=== PATIENT | female | born 1945 | race Caucasian/White ===

== ENCOUNTER → 2017-01-16 11:04 | Outpatient (CLI) | payer MEDICARE, BC ==
[~2017-01-16] VITALS: Ht 160 cm; Wt 88.6 kg
--- NOTE | ~2017-01-16 | HEMODYNAMI ---
PATIENT:GORDY MCRAE MEDICAL RECORD: [id number] : 49 LOCATION:[facility] ADMISSION DATE: 01/16/17 Generatedon:01/16/201713:41 Patient name: GORDY MCRAE Patient #: [id number] SSN: DO B: 1945 Date of study: 01/16/2017 Page: Of Hemodynamic Procedure Report Patient Data Patient Demographics Procedure consent was obtained First Name: GORDY Gender: Female Last Name: THOR : 1945 [facility] Initial: S Age: 71 year(s) Patient #: [id number] Race: Unknown Additional ID: [id number] Contact details Address: [address] [place] [address] [facility] State: [place] City: [place] Zip code: [address] Past Medical History Allergies: No known allergies Admission Admission Data Admission Date: 01/16/2017 Admission Time: 11:04 Lab Results Lab Result Date: 01/16/2017 Lab Result Time: 11:40 Biochemistry Name Units Result Min Max BUN mg/dl 14 --(--*-)-- 7 18 Creatinine mg/dl 0.9 --(-*--)-- 0.6 1.3 CBC Name Units Result Min Max Hematocrit % 29.6 *-(----)-- 42 54 Hemoglobin g/dl 8.4 *-(----)-- 13.5 17.5 Procedure Procedure Types Cath Procedure Diagnostic Procedure [facility] w/Coronaries Miscellaneous Procedures Moderate Sedation up to 30 minutes Procedure Description Procedure Date Procedure Date: 01/16/2017 Procedure Start Time: 13:19 Procedure End Time: 13:40 Procedure Staff Name Function Harris Qureshi RT Scrub Virginie Butts RN Nurse Lonny Leary MD Performing Physician Jose G Chavez RT Monitor Rasheeda Bowman RT Scrub Maritza Lockwood RT Monitor Procedure Data Cath Procedure Fluoroscopy Diagnostic fluoroscopy Total fluoroscopy Time: 2.2 time: 2.2 min min Diagnostic fluoroscopy Total fluoroscopy dose: 412 dose: 412 mGy mGy Contrast Material Contrast Material Type Amount (ml) Isovue 300 68 Entry Location Entry Primary Successful Side Size Upsize Upsize Entry Closure Succes sful Closure Location (Fr) 1 (Fr) 2 (Fr) Remarks Device Remarks Femoral Right 5 Fr Exoseal artery Estimated blood loss: 5 ml Diagnostic catheters Device Type Used For End Catheter Placement Cordis 5Fr JL 4.0 Left Coronary Catheter (MP) Angiography Cordis 5Fr 3DRC Catheter Right Coronary (MP) Angiography Cordis 5Fr Pigtail LV Angiography Catheter (MP) Procedure Complications No complications Procedure Medications Medication Administration Route Dosage Oxygen NC 2 l/min Lidocaine 2% added to field 20 Heparin Flush Bag added to field 2 bags (1000units/500ml NS) 0.9% NaCl I.V. 100 ml/hr Versed I.V. 1 mg Fentanyl I.V. 50 mcg Versed I.V. 1 mg Fentanyl I.V. 50 mcg Fentanyl I.V. 25 mcg Hemodynamics Rest HGB: 8.4 (g/dl) Heart Rate: 62 (bpm) Pressure Samples Time Site Value (mmHg) Purpose Heart Use Rate(bpm) 13:34 LV 143/6,23 EDP 71 13:35 LV 122/12,21 Pullback 62 13:35 AO 147/72(105) Pullback 62 Gradients Valve Time Site 1 Site 2 Mean SEP/DFP Peak To Heart Use (mmHg) (sec/min) Peak Rate (mmHg) (bpm) Aortic 13:35 LV AO 0 5 0 62 122/12,21 147/72(105) Calculations Valve P-P Mean Valve Index Valve Source Name Gradient Area Flow (cm2) Aortic 0 0 0 0 Snapshots Pre Cath Intra NCS Post Cath Vital Signs Time Heart Resp SPO2 etCO2 MO1rqul NIBP (mmHg) Rhythm Pain Sedation Rate (ipm) (%) (mmHg) (mmHg) Status Level (bpm) 13:06:45 67 22 100 0 0 Measuring NSR 0 (11) 10(A) , No pain 13:07:52 73 19 100 0 0 108/62(0) NSR 0 (11) 10(A) , No pain 13:12:53 64 16 100 0 0 88/61(86) NSR 0 (11) 10(A) , No pain 13:15:57 64 12 100 0 0 127/82(111) NSR 0 (11) 9(A) , No pain 13:20:34 65 16 100 0 0 136/76(105) NSR 0 (11) 9(A) , No pain 13:24:38 62 17 100 0 0 119/75(101) NSR 0 (11) 9(A) , No pain 13:28:37 64 14 100 0 0 133/75(106) NSR 0 (11) 9(A) , No pain 13:32:39 67 16 100 0 0 141/79(111) NSR 0 (11) 10(A) , No pain 13:36:41 75 15 100 0 0 140/82(112) NSR 0 (11) 10(A) , No pain Medications Time Medication Route Dose Verified Delivered Reason Notes Effe ctiveness by by 13:08:16 Oxygen NC 2 Lonny Buffie used for l/min Gibran Butts RN procedure 13:08:23 Lidocaine 2% added 20ml Lonny Lonny for local to vial Gibran Leary MD anesthetic field 13:08:36 Heparin Flush added 2 Lonny Lonny used for Bag to bags Gibran Leary MD procedure (1000units/500ml field NS) 13:08:46 0.9% NaCl I.V. 100 Lonny Buffie Per ml/hr Gibran Butts RN physician 13:10:28 Versed I.V. 1 mg Lonny Buffie for Gibran Butts RN sedation 13:10:35 Fentanyl I.V. 50 Lonny Buffie for alex Butts RN sedation 13:20:44 Versed I.V. 1 mg Lonny Buffie for Gibran Butts RN sedation 13:20:51 Fentanyl I.V. 50 Lonny Buffie for alex Butts RN sedation 13:31:19 Fentanyl I.V. 25 Lonny Buffie for alex Butts RN sedation Procedure Log Time Note 12:35:44 Harris Qureshi RT(R) sent for patient. Start room use. 12:46:45 Time tracking: Regular hours 12:46:50 Plan of Care:Hemodynamics will remain stable., Cardiac rhythm will remain stable., Comfort level will be maintained., Respiratory function will remain adequate., Patient/ family verbilizes understanding of procedure., Procedure tolerated without complication., Recovers from procedure without complications.. 12:55:00 Patient received from Pre/Post Procedure Room to CCL 1 Alert and oriented. Tansferred to table in Supine position. 12:55:01 Correct patient and procedure confirmed by team. 12:55:01 Warm blankets applied, and justice hugger turned on for patient comfort. 12:55:04 Signed procedure consent form obtained from patient. 12:55:05 ECG and BP/O2 sat monitors applied to patient. 12:55:39 H&P Date Dictated: 01/09/2017 Within 30 days and on chart., H&P Addendum completed by physician on day of procedure. (MUST COMPLETE FOR ALL OUTPATIENTS). 12:55:41 Pre-op teaching completed and patient verbalized understanding. 12:55:41 Pre-procedure instructions explained to patient. 12:55:46 Family in patients room. 12:55:48 Patient NPO since Midnight. 12:55:59 Patient allergic to No known allergies 12:56:02 Is the patient allergic to Iodine/contrast media? No. 12:57:15 Lab Result : Hemoglobin 8.4 g/dl 12:57:15 Lab Result : Hematocrit 29.6 % 12:57:15 Lab Result : BUN 14 mg/dl 12:57:15 Lab Result : Creatinine 0.9 mg/dl 12:57:20 Lab results completed and on chart. 13:04:55 Vital chart was started 13:05:15 Full Disclosure recording started 13:05:21 Rhythm: sinus rhythm 13:05:30 Is patient on blood thinner?No 13:05:39 Patient diabetic? Yes. 13:05:40 If diabetic: On Metformin? Yes 13:06:10 If on Metformin: Last Dose? 01/14/2017 13:06:14 Previous problem with sedation/anesthesia? No ? 13:06:15 Snore? Yes 13:06:16 Sleep apnea? No 13:06:20 Deviated septum? No 13:06:21 Opens mouth fully? Yes 13:06:22 Sticks out tongue? Yes 13:06:25 Airway obstruction? No ? 13:06:26 Dentures? No ? 13:06:28 Pre procedure: right dorsailis pedis pulse 2+ Normal; easily identifiable; not easily obliterated 13:06:31 Modified Noman's test Ulnar > 7 seconds. 13:06:33 Patient pain scale 0/10 ?. 13:06:39 IV patent on arrival in left hand with 0.9% NaCl at O. 13:06:45 Right groin area was prepped with chlora-prep and draped in sterile fashion 13:06:46 Sharps counted by scrub and verified by R.N. 13:06:46 Alarms reviewed by R. N. 13:06:52 Use device set Femoral Dx 13:06:53 Medline Cath Pack opened to sterile field. 13:06:53 Bag Decanter opened to sterile field. 13:06:53 Acist Syringe opened to sterile field. 13:06:54 St Gerald 260cm J .035 wire opened to sterile field. 13:06:54 Terumo 5Fr [place] Sheath opened to sterile field. 13:06:55 Acist Hand Control opened to sterile field. 13:06:56 Diagnostic Infinity 5Fr Multipack catheter opened to sterile field. 13:06:56 Acist Manifold opened to sterile field. 13:06:57 Tegaderm 4 x 4 opened to sterile field. 13:08:16 Oxygen 2 l/min NC was administered by Virginie Butts RN; used for procedure; 13:08:22 Vital chart was stopped 13:08:23 Lidocaine 2% 20ml vial added to field was administered by Lonny Leary MD; for local anesthetic; 13:08:36 Heparin Flush Bag (1000units/500ml NS) 2 bags added to field was administered by Lonny Leary MD; used for procedure; 13:08:46 0.9% NaCl 100 ml/hr I.V. was administered by Virginie Butts RN; Per physician; 13:09:22 Vital chart was started 13:09:40 Final Timeout: patient, procedure, and site verified with staff and physician. All members of the team are in agreement. 13:09:42 Right groin site verified by team. 13:09:44 Physical assessment completed. ASA score P 2 - A patient with mild systemic disease as per Lonny Leary MD. 13:09:48 Sedation plan: IV Moderate Sedation Versed, Fentanyl 13:10:28 Versed 1 mg I.V. was administered by Virginie Butts RN; for sedation; 13:10:35 Fentanyl 50 mcg I.V. was administered by Virginie Butts RN; for sedation; 13:13:53 Baseline sample Acquired. 13:18:56 Procedure started. 13:19:03 Local anesthetic to right femoral artery with Lidocaine 2% by Lonny Leary MD.INITIAL ACCESS ONLY 13:20:44 Versed 1 mg I.V. was administered by Virginie Butts RN; for sedation; 13:20:51 Fentanyl 50 mcg I.V. was administered by Virginie Butts RN; for sedation; 13:28:41 A 5 Fr sheath was inserted into the Right Femoral artery 13:30:09 A Cordis 5Fr JL 4.0 Catheter (MP) was advanced over the wire and used for Left Coronary Angiography. 13:31:03 Catheter removed. 13:31:19 Fentanyl 25 mcg I.V. was administered by Virginie Butts RN; for sedation; 13:32:07 A Cordis 5Fr 3DRC Catheter (MP) was advanced over the wire and used for Right Coronary Angiography. 13:33:08 Catheter removed. 13:33:39 A Cordis 5Fr Pigtail Catheter (MP) was advanced over the wire and used for LV Angiography. 13:34:41 LV gram done using PEARSON 13:34:43 LV hemodynamics recorded. 13:34:47 Injector settings: Ml/sec: 10, Volume: 20, 13:34:52 EF : 60 % 13:35:24 Catheter removed. 13:35:44 Sheath removed intact; hemostasis achieved with Exoseal to the Right Femoral artery. 13:35:59 Cordis 5Fr Exoseal opened to sterile field. 13:36:04 Procedure ended.(Physican Out) 13:38:27 Fluoroscopy time 02.20 minutes. 13:38:31 Fluoroscopy dose: 412 mGy 13:38:31 Flurop Dose total: 412 13:38:35 Contrast amount:Isovue 300 68ml. 13:38:36 Sharps counted by scrub and verified by R.N. 13:38:37 Insertion/operative site no bleeding no hematoma. 13:38:39 Post-op/insertion site Right Femoral artery dressed using a 4 x 4 and Tegaderm. 13:38:42 Post right femoral artery:stable, clean and dry 13:38:44 Post Procedure Pulses reassessed and unchanged 13:38:50 Post-procedure physical assessment completed. ASA score P 2 - A patient with mild systemic disease as per Lonny Leary MD. 13:38:52 Post procedure rhythm: unchanged. 13:38:55 Estimated blood loss: 5 ml 13:38:56 Post procedure instruction explained to patient.Patient verbalizes understanding. 13:38:57 Patient needs reinforcement of post procedure teaching. 13:39:37 Procedure type changed to Cath procedure, Diagnostic procedure, LHC, LHC w/Coronaries, Miscellaneous Procedures, Moderate Sedation up to 30 minutes 13:39:38 Procedure and supply charges have been captured, reviewed, submitted and are correct. 13:39:42 Procedure Complication : No complications 13:39:44 See physician's report for complete and final results. 13:40:12 Report given to Pre/Post Procedure Room. 13:40:17 Patient transfered to Pre/Post Procedure Room with Stretcher. 13:40:28 Full Disclosure recording stopped 13:40:28 Procedure ended. 13:40:33 End room use (Document Last) Device Usage Item Name Manufacture Quantity Catalog Hospital Part Current Minimal Lo t# / Number Charge Number Stock Stock Serial# Code Acist Acist 1 [id number] 186731 [id number] [id number] 20 Syringe [employer] Bag Microtek 1 2002S 271152 20738 031832 5 Decanter [employer] Medline Cardinal 1 [id number] 078947 89869 446489 5 Cath Pack Health Terumo 5Fr Terumo 1 [id number] 107250 395661 601459 [address] Gerald 1 [id number] 954865 525981 982550 30 260cm J .035 wire Acist Hand Acist 1 74739 077429 747175 812577 5 Control [employer] Inc Acist Acist 1 49366 720249 994227 510395 5 Manifold [employer] Inc Diagnostic Cardinal 1 [id number] 729218 99027 267611 30 Infinity Health 5Fr Multipack catheter Tegaderm 4 3M 1 1626W 870579 964019 823636 5 x 4 Cordis 5Fr Cardinal 1 339824 5 JL 4.0 Health Catheter (MP) Cordis 5Fr Cardinal 1 110925 5 3DRC Health Catheter (MP) Cordis 5Fr Cardinal 1 034321 5 Pigtail Health Catheter (MP) Cordis 5Fr Cardinal 1 EX500 747207 848255 627090 10 Productiv Signature Audit [place] Stage Time Signature Unsigned Intra-Procedure 01/16/2017 [place] 1:41:35 PM Counts RT(R) Signatures Monitor : Jose G Chavez RT Signature : Date : Time : Monitor : Maritza Signature : Counts RT Date : Time : [place] [address] [place] [address]
[~2017-01-16 11:04] MED LIST: CELEXA20 MG PO; GLUCOPHAGE500 MG PO; LEVOXYL50 MCG PO; OMEPRAZOLE20 M1 PO; TOPAMAX50 MG PO
[2017-01-16 11:37] VITALS: BP 133/63; Ht 160 cm; Wt 88.6 kg
[2017-01-16 11:48] LABS: BASOPHILS 0.5 % (0-2); EOSINOPHILS 2.7 % (0-7); HEMATOCRIT 29.6 % (36.0-48.0); HEMOGLOBIN 8.4 g/dL (12-16); IMMATURE GRANULOCYTES 0.2 % (0-5); LYMPHOCYTES 24.7 % (15-50); MCH 21.2 pg (26.0-34.0); MCHC 28.4 g/dL (31.0-37.0); MCV 74.7 fL (80.0-100.0); MEAN PLATELET VOLUME 9.7 fL (7.4-10.4); MONOCYTES 11.7 % (2-11); NEUTROPHILS 60.2 % (40-80); PLATELET COUNT 258 10x3/uL (130-400); RBC 3.96 10x6/uL (4.00-5.40); RDW 18.7 % (11.5-14.5); WBC 5.9 10x3/uL (4.8-10.8)
[2017-01-16 12:06] LABS: ANION GAP 12.9 mmol/L (8-16); CALCIUM 8.4 mg/dL (8.5-10.1); CARBON DIOXIDE 24.4 mmol/L (21.0-32.0); CREATININE - SERUM 0.9 mg/dL (0.6-1.3); POTASSIUM - SERUM 4.3 mmol/L (3.5-5.1)
--- NOTE | 2017-01-16 14:05 | NUR ---
RIGHT GROIN CDI, NO HEMATOMA OR BLEEDING AT SITE. SOFT TO TOUCH
--- NOTE | 2017-01-16 14:15 | NUR ---
RIGHT GROIN CDI, NO HEMATOMA OR BLEEDING AT SITE, SOFT TO TOUCH. RESTING
--- NOTE | 2017-01-16 16:20 | NUR ---
IV D'C WITH CATH TIP INTACT, UP TO RESTROOM- VOID, WRITTEN AND VERBAL D'C INSTRUCTIONS GIVEN TO PT AND FRIEND- VERBAL UNDERSTANDING NOTED. D'C HOME
== END | disposition home or self-care (01) ==
LOC: D.CATH 11:04
PROVIDERS: Internal Medicine Cardiovascular Disease
DX: I20.9 Angina pectoris, unspecified (principal); R06.09 Other forms of dyspnea; Z01.812 Encounter for preprocedural laboratory examination

== ENCOUNTER → 2017-07-24 17:49 | Outpatient (CLI) | payer MEDICARE, BC ==
[2017-01-16 11:37] VITALS: BMI 34.6
== END | disposition home or self-care (01) ==
LOC: D.MAMMO 16:00
DX: Z12.31 Encounter for screening mammogram for malignant neoplasm of breast (principal)

== ENCOUNTER → 2018-08-29 08:23 | Outpatient (CLI) | payer MEDICARE, BC ==
[2017-01-16 11:37] VITALS: BMI 34.6
== END | disposition home or self-care (01) ==
LOC: D.US 08:23
PROVIDERS: ATTEND Family Medicine
DX: R10.10 Upper abdominal pain, unspecified (principal)

== ENCOUNTER → 2019-12-16 10:23 | Outpatient (CLI) | payer MEDICARE, BC ==
[2017-01-16 11:37] VITALS: BMI 34.6
== END | disposition home or self-care (01) ==
LOC: D.HCCARDIO 10:23
PROVIDERS: ATTEND Internal Medicine Cardiovascular Disease
DX: I20.9 Angina pectoris, unspecified (principal)